=== PATIENT | male | born 1990 | race Hispanic/Latino ===

== ENCOUNTER 2017-03-13 21:15 | Emergency (ER) | payer SELFPAY ==
[~2017-03-13 21:15] MED LIST: CYCLOBENZAPRINE10 M1 PO; FLEXERIL10 MG PO; FLOMAX0.4 M1 PO; IBUPROFEN600 M1 PO; IBUPROFEN800 M1 PO; MOBIC 15MG15 MG PO; MOBIC15 M1 PO; PERCOCET 5-3251 EACH PO; TRAMADOL HCL50 M1 PO; TRAMADOL50 MG PO; TYLENOL325 M1 PO; ULTRAM50 M1 PO; VICODIN 5-3001 EACH PO; ZOFRAN ODT4 M1 PO; ZOFRAN ODT4 M1 SL
--- NOTE | 2017-03-13 22:18 | RADIOLOGY REPORT ---
EXAMINATION: XR WRIST, LEFT CLINICAL INFORMATION: Pain after trauma. COMPARISON: None TECHNIQUE: AP, lateral, and oblique views of the left wrist. FINDINGS: There is a transverse fracture through the mid waist of the navicular bone. Fracture is nondisplaced. There is no dislocation. IMPRESSION: Transverse nondisplaced fracture through the mid waist of navicular bone.
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
[2017-03-13 23:21] VITALS: BP 124/76
== END 2017-03-13 23:27 ==
LOC: ERH 21:15
DX: S62.002A Unspecified fracture of navicular [scaphoid] bone of left wrist, initial encounter for closed fracture (principal); S60.511A Abrasion of right hand, initial encounter; V28.4XXA Motorcycle driver injured in noncollision transport accident in traffic accident, initial encounter; Y92.9 Unspecified place or not applicable
CPT/HCPCS: 73110-LT